=== PATIENT | male | born 1955 | race Caucasian/White ===

== ENCOUNTER 2018-06-11 16:23 | Emergency (ER) | payer BC ==
[~2018-06-11] VITALS: Ht 177.8 cm; Wt 98.4 kg
[~2018-06-11 16:23] MED LIST: AMLODIPINE BESYL5 MG PO; ASPIRIN EC81 MG PO; CARVEDILOL25 MG PO; CYCLOBENZAPRINE10 MG PO; DOXAZOSIN MESYLA1 MG PO; FUROSEMIDE40 MG PO; LISINOPRIL20 MG PO; LORAZEPAM1 MG PO; PAXIL20 MG PO; POTASSIUM CITR10 MEQ PO; VITAMIN E400 UNIT PO
[2018-06-11] MEDS ORDERED: ENTRESTO 49 MG1 EACH PO (16:38)
== END 2018-06-11 17:20 | disposition home or self-care (01) ==
LOC: ED 16:23
PROC: 0HQLXZZ Repair Left Lower Leg Skin, External Approach (ICD-10-PCS; principal; 2018-06-11)
DX: S91.312A Laceration without foreign body, left foot, initial encounter (principal); Z88.5 Allergy status to narcotic agent; Z79.899 Other long term (current) drug therapy; Z23 Encounter for immunization; X58.XXXA Exposure to other specified factors, initial encounter
CPT/HCPCS: 12002; 90471; 90715; 99282

== ENCOUNTER 2024-08-05 06:35 | Day surgery (SDC) | payer MEDICARE, OTHER ==
[2024-07-25 14:26] VITALS: BP 119/65
[~2024-08-05] VITALS: Ht 177.8 cm; Wt 103.2 kg
[~2024-08-05 06:35] MED LIST changes: +ALDACTONE25 MG PO; +CIALIS10 MG PO; +ENTRESTO 49 MG1 EACH PO; +ENTRESTO 97 MG1 EACH PO; +FARXIGA10 MG PO; +HYDRALAZINE HCL50 MG PO; +LACTATED RINGER'S 1,000 ML IV SCH
[2024-08-05 06:54] VITALS: BP 121/83
[2024-08-05] MEDS ORDERED: INTRA-ARTICULAR ANALGESIC INJECTION XX SCH (07:00)
[2024-08-05] MEDS ORDERED: CEFAZOLIN SODIUM 2 GM/20 ML SYR IV SCH ×2 (07:00→17:00)
[2024-08-05] MEDS ORDERED: GABAPENTIN 600 MG TAB PO SCH (07:00)
[2024-08-05] MEDS ORDERED: ROPIVACAINE IN 0.9% SOD CHL/PF 545 ML ELS.PMP.HR IRRIGATION SCH (07:00)
[2024-08-05] MEDS ORDERED: OXYCODONE HCL 5 MG TAB PO SCH (07:00)
[2024-08-05] MEDS ORDERED: LIDOCAINE HCL 1% 5 ML SDV INJ ONE (07:00)
[2024-08-05] MEDS ORDERED: ondansetron HCL 4 MG TAB PO SCH (07:00)
[2024-08-05] MEDS ORDERED: PANTOPRAZOLE SODIUM 40 MG TABEC PO SCH (07:00)
[2024-08-05] MEDS ORDERED: TRANEXAMIC ACID 2,000 MG in SODIUM CHLORIDE 0.9% 100 ML IV SCH (07:00)
[2024-08-05] MEDS ORDERED: IBLOOD GLUCOSE TEST STRIP 1 EA TEST VI PRN ×2 (07:00→10:30)
--- NOTE | 2024-08-05 07:36 | NUR ---
VISITED DURING SPIRITUAL CARE ROUNDS. PT APPEARED TO BE IN GOOD SPIRITS; MINIMAL SIGNS OF ANXIETY IN EVIDENCE, DENIED IMMEDIATE NEEDS. FITNESS INSTRUCTOR PROVIDED SUPPORTIVE PRESENCE, HOSPITALITY, PRAYER, ANXIETY CONTAINMENT, FACILITATED INTERACTION WITH THERAPY ANIMAL. PT EXPRESSED GRATITUDE, SIGNS OF ANXIETY REDUCED.
[2024-08-05] MEDS ORDERED: DEXAMETHASONE SOD PHOS 4 MG/ML VIAL ONE ×2 (08:32→10:03)
[2024-08-05] MEDS ORDERED: propofoL 200 MG/20 ML VIAL ONE ×2 (08:32→11:00)
[2024-08-05] MEDS ORDERED: SODIUM CHLORIDE 0.9% 20 ML IV ONE (08:32)
[2024-08-05] MEDS ORDERED: Ropivacaine HCl 0.5% 30 ML VIAL ONE (08:32)
[2024-08-05] MEDS ORDERED: LIDOCAINE HCL 2% 20 MG/ML VIAL INJ ONE (08:32)
[2024-08-05] MEDS ORDERED: LIDOCAINE HCL 2% 5 ML SDV ONE (08:34)
[2024-08-05] MEDS ORDERED: Ropivacaine HCl 20 MG/10 ML AMP ONE (09:13)
[2024-08-05] MEDS ORDERED: KETOROLAC TROMETHAMINE 30 MG/ML VIAL IV PRN (09:15)
[2024-08-05] MEDS ORDERED: OXYCODONE HCL 5 MG TAB PO PRN (09:15)
[2024-08-05] MEDS ORDERED: ondansetron HCL 4 MG/2 ML VIAL ONE (10:03)
[2024-08-05] MEDS ORDERED: KETOROLAC TROMETHAMINE 30 MG/ML VIAL ONE (10:03)
[2024-08-05] MEDS ORDERED: droPERidol 5 MG/2 ML VIAL IV PRN (10:30)
[2024-08-05] MEDS ORDERED: NALOXONE HCL 0.4 MG SYR IV PRN (10:30)
[2024-08-05] MEDS ORDERED: fentaNYL citrate 50 MCG/ML SDV IV PRN (10:30)
[2024-08-05] MEDS ORDERED: HYDROmorphone HCL 1 MG/ML SYR IV PRN (10:30)
[2024-08-05] MEDS ORDERED: ondansetron HCL 4 MG/2 ML VIAL IV PRN (10:30)
[2024-08-05] MEDS ORDERED: PROCHLORPERAZINE EDISYLATE 10 MG/2 ML VIAL IV PRN (10:30)
[2024-08-05] MEDS ORDERED: TRANEXAMIC ACID 1,000 MG/10 ML AMP ONE (10:53)
[2024-08-05] MEDS ORDERED: ACETAMINOPHEN 1,000 MG/100 ML VIAL ONE (10:56)
[2024-08-05] MEDS ORDERED: ACETAMINOPHEN500 MG PO (11:31)
[2024-08-05] MEDS ORDERED: XARELTO10 MG PO (11:31)
[2024-08-05] MEDS ORDERED: DICLOFENAC SODI75 MG PO (11:31)
[2024-08-05] MEDS ORDERED: GABAPENTIN300 MG PO (11:31)
[2024-08-05] MEDS ORDERED: OXYCODONE HCL5 MG PO (11:31)
[2024-08-05] MEDS ORDERED: CEFPROZIL500 MG PO (11:33)
--- NOTE | 2024-08-05 11:51 | NUR ---
08/05/24 1151 Lakesha Forman PT TO PACU ALERT AND AWAKE. DENIES PAIN AND NAUSEA. PT ON ROOM AIR MAINTAINS SATS ABOVE 95%.
[2024-08-05] MEDS ORDERED: TRANEXAMIC ACID 2,000 MG in SODIUM CHLORIDE 0.9% 100 ML IV ONE (12:00)
--- NOTE | 2024-08-05 12:20 | NUR ---
PT ARRIVES TO DS FROM PACU VIA STRETCHER. PT IS A&O AND REPORTS NO PAIN OR NAUSEA AT THIS TIME. SPINAL HAS RESOLVED, PT REPORT NO N/T AND ABLE TO WIGGLE FEET WITHOUT DIFFICULTY. SENSATION PRESENT ON ANTERIOR AND POSTERIOR ASPECT OF LEG. HEEL PROTECTORS, ONQ PUMP AT 4, FOOT PUMPS, ONEIL HOSE, AND CRYO CUFF IN PLACE. ICE WATER, CRACKERS, AND APPLE SAUCE PROVIDED. PT REPORTS NO FURTHER NEEDS OR QUESTIONS AT THIS TIME. CALL LIGHT WITHIN REACH.
[2024-08-05 12:24] VITALS: BP 102/64
[2024-08-05 13:25] VITALS: BP 108/64
--- NOTE | 2024-08-05 13:25 | NUR ---
IN PT ROOM FOR VS AND ASSESSMENT. NO ACUTE CHANGES FROM PREVIOUS ASSESSMENT. PT TOLERATED APPLESAUCE, CRACKERS, AND ICE WATER WITHOUT DIFFICULTY. PT STATES NO PAIN AND NO NAUSEA. DRESSING C/D/I. CALL LIGHT WITHIN REACH, LUNCH ORDER PLACED.
--- NOTE | 2024-08-05 13:37 | OR ---
[facility] [address], [place] [address] Signed DATE OF OPERATION: 08/05/2024 SURGEON: Jesenia Forman MD PREOPERATIVE DIAGNOSIS: Severe degenerative joint disease, right knee. POSTOPERATIVE DIAGNOSIS: Severe degenerative joint disease, right knee. PROCEDURE PERFORMED: Right total knee arthroplasty with Max. BUS REPAIR SUPERVISOR: Nuris Fallon PA-C. Nuris was present and critical for all portions of procedure. ANESTHESIA: Spinal. BLOOD LOSS: 175 mL. IMPLANTS: Archnaa Triathlon size 6 femur, size 5 tibia, 11 mm polyethylene and a 35 mm patella. BRIEF HISTORY: Hudson is a 69-year-old gentleman with pain in his knee that was nonresponsive to medical treatment. Risks, benefits, and alternatives of operative treatment were discussed with him and he elected to proceed. PROCEDURE IN DETAIL: Once consent was obtained, he was taken to the operating room. After adequate anesthesia, he was placed on the operating room table. All downside pressure points were well padded and the right hip bump was placed. The leg was then prepped and draped in a standard sterile fashion. The knee was approached through a standard anterior midline incision, carried through the skin and subcutaneous tissue and a midvastus arthrotomy was performed. The infrapatellar fat pad was excised. The MCL was elevated as a sleeve around the posteromedial corner. The anterior horn of the lateral meniscus was transected and the ACL was transected. PCL was found to be intact. Multiple loose Electronically Signed By: JESENIA FORMAN MD 08/05/24 1337 PATIENT NAME: HUDSON MONCADA OPERATIVE REPORT DATE OF : 59 REPORT #: [id number] PHYSICIAN: JESENIA FORMAN MD PCP: NO PRIMARY CARE PHYSICIAN REPORT IS CONFIDENTIAL AND NOT TO BE RELEASED WITHOUT AUTHORIZATION [facility] [address], [place] [address] Signed bodies were noted in the medial side and suprapatellar pouch. These were all removed. The computer arrays for the [employer] system were placed in the medial femoral condyle and proximal tibia. The leg was then registered with computer followed by the fine anatomic points of the knee. Once this was completed, the ligamentous poses were taken and slight adjustments to the femoral component were made. The robot was then brought in. The tibial cut was made followed by two cuts on the femoral side when at that point the saw essentially exploded into the wound. There were multiple ball bearings and screws from the inside of the saw mechanism inside the wound. The rest of it went on the floor. We were able to retrieve all the ball bearings and the screw and irrigate the area with Irrisept. A new saw was obtained and the final two cuts were finished. The posterior osteophytes were removed off the femur, posterior release was performed. The trials were then positioned and the knee was taken through range of motion and found to be stable. The patella was cut sized and drilled for a 35 patella. The distal femoral drill holes were completed and the proximal tibia was finished using the keel punch followed by the drill holes. The prosthesis was obtained. Once again, the knee was irrigated with Irrisept and normal saline and then the tibial prosthesis was impacted until it was flushed. The polyethylene was snapped into position and the femur was impacted. The knee was extended and loaded. The patella was clamped into position. The knee was taken through range of motion. He went from 0 to 140 degrees with excellent stability. The patella tracked well. The On-Q pain pump was percutaneously placed into the adductor canal. The knee was again irrigated with a bottle of Surgiphor and normal saline. The periarticular soft tissues were injected with 100 mL of ropivacaine and Toradol mixture. The arthrotomy was then closed using a combination of #2 FiberWire and #2 Stratafix, subcutaneous tissue with 0 Stratafix and the skin with mindi. Wound was dressed with an Acticoat-7 dressing, ABD, and Heath wrap. He tolerated the procedure well. All sponge, needle, and instrument counts were correct. Jesenia Forman MD BA/MODL /[id number] Electronically Signed By: JESENIA FORMAN MD 08/05/24 1337 PATIENT NAME: HUDSON MONCADA OPERATIVE REPORT DATE OF : 59 REPORT #: [id number] PHYSICIAN: JESENIA FORMAN MD PCP: NO PRIMARY CARE PHYSICIAN REPORT IS CONFIDENTIAL AND NOT TO BE RELEASED WITHOUT AUTHORIZATION [address] [address] Signed Copies: ~ Electronically Signed By: JESENIA FORMAN MD 08/05/24 1337 PATIENT NAME: HUDSON MONCADA OPERATIVE REPORT DATE OF : 59 REPORT #: [id number] PHYSICIAN: JESENIA FORMAN MD PCP: NO PRIMARY CARE PHYSICIAN REPORT IS CONFIDENTIAL AND NOT TO BE RELEASED WITHOUT AUTHORIZATION
--- NOTE | 2024-08-05 14:10 | NUR ---
PT WORKING W/PHYSICAL THERAPIST AT THIS TIME.
--- NOTE | 2024-08-05 14:25 | NUR ---
PT ARRIVES BACK FROM PHYSICAL THERAPY, PER LESIA Gaspar/PHYSICAL THERAPY, PT HAS PASSED. VS TAKEN, ASSESSMENT PERFORMED. PT REPORTS NO PAIN OR NAUSEA POST PHYSICAL THERAPY SESSION. IV TXA INFUSING (SEE EMAR). CALL LIGHT WITHIN REACH.
[2024-08-05 14:27] VITALS: BP 107/58
--- NOTE | 2024-08-05 14:35 | NUR ---
ORAL GABAPENTIN AND IV ANCEF GIVEN (SEE EMAR). DISCHARGE EDUCATION PROVIDED. PT STATES NO FURTHER NEEDS OR QUESTIONS AT THIS TIME. PT GETTING DRESSED AND CALLING RIDE AT THIS TIME. CALL LIGHT WITHIN REACH.
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
[2024-08-05] MEDS ORDERED: ACETAMINOPHEN 500 MG TAB PO SCH (15:00)
[2024-08-05] MEDS ORDERED: GABAPENTIN 300 MG CAP PO SCH (15:00)
[2024-08-05] MEDS ORDERED: SENNOSIDES 1 TAB PO SCH (21:00)
[2024-08-06] MEDS ORDERED: Rivaroxaban 10 MG TAB PO SCH (08:00)
[2024-08-06] MEDS ORDERED: DICLOFENAC SOD 75 MG TABEC PO SCH (08:00)
== END 2024-08-05 14:52 | disposition home or self-care (01) ==
LOC: DS 06:35
PROVIDERS: ATTEND Specialist
PROC: 0SRC0JZ Replacement of Right Knee Joint with Synthetic Substitute, Open Approach (ICD-10-PCS; principal; 2024-08-05 09:30)
DX: M17.11 Unilateral primary osteoarthritis, right knee (principal); I10 Essential (primary) hypertension; Z79.82 Long term (current) use of aspirin; Z79.899 Other long term (current) drug therapy; Z88.5 Allergy status to narcotic agent
CPT/HCPCS: 01400; 64447; 64450; 64454; 73560; 76942; 97161; 97530; A9270; C1713; C1776; J0131; J0690; J1100; J1885; J2003; J2405; J2704; J2795; J7121; J7999